=== PATIENT | female | born 1975 | race Caucasian/White ===

== ENCOUNTER 2019-12-30 01:41 | Emergency (ER) | payer OTHER, SELFPAY ==
--- NOTE | ~2019-12-30 | CT_ITS ---
EXAMINATION: CT brain wo con DATE: 12/30/2019 02:05 INDICATION: Severe headache TECHNIQUE: Computed tomography (CT) of the head was performed without intravenous contrast. The mA wa s adjusted according to patient size. Iterative reconstruction technique was employed. Exam dose: 60 5.33 mGy-cm total exam DLP. COMPARISON: None FINDINGS: No intracranial mass lesion or hemorrhage or cerebrovascular accident is evident. No midlin e shift or mass effect. Normal munguia-white matter differentiation. No subdural or epidural hematoma. There is calcification of the carotid siphon internal carotid arteries. No fracture or bone destruction of the cranial vault. The included paranasal sinuses and mastoid air cells are normally developed and aerated. IMPRESSION: Cerebral atherosclerosis; no other significant abnormality Reviewed, dictated and finalized at [facility] Reviewed, dictated and finalized at [facility].
[2019-12-30 01:42] VITALS: BP 150/106; PULSE 111; RESP 16; TEMP 37.2; O2SAT 100
--- NOTE | 2019-12-30 01:47 | ED.HA ---
HPI - Headache General Chief Complaint: Headache Stated Complaint: vomiting Time Seen by Provider: 12/30/19 01:45 History of Present Illness HPI Narrative: She is a respiratory therapist here. While at work she began to develop a a headache. She tried OTC medications for the pain. It became severe. She then developed nausea and vomited several times. She reports that she has had similar headaches with increasing frequency. This has been the most severe. She has not had any work-up up to this point. Related Data Home Medications Medication Instructions Recorded Confirmed bupropion HCl [Wellbutrin XL] 300 mg PO QAM 12/30/19 Allergies Allergy/AdvReac Type Severity Reaction Status Date / Time Sulfa (Sulfonamide Allergy Unknown Verified 12/30/19 01:47 Antibiotics) Review of Systems Review of Systems: All systems reviewed & are unremarkable except as noted in HPI and below Constitutional: Constitutional: Denies fever(s) Eyes: Eyes: Denies change in vision Cardiovascular: Cardiovascular: Denies chest pain Respiratory: Respiratory: Denies dyspnea Gastrointestinal: Gastrointestinal: Denies abdominal pain, Reports nausea and Reports vomiting Neurologic: Reports headache(s) and Denies weakness [facility] Past Medical History Medical History (Updated 12/30/19 @ 02:30 by Luke Argueta MD) Depression Headache Social History Social History (Updated 12/30/19 @ 02:28 by Luke Argueta MD) Smoking status: Never smoker Gender identity (if verbalized by the patient): Female Exam Const: General: alert and ill appearing Nutritional Appearance: obese Orientation/consciousness: patient oriented x3 HENMT: Head: normal to inspection Eyes: Pupils: Equal, round and reactive pupils present Resp: Effort & Inspection: normal respiratory effort Auscultation: clear to auscultation bilaterally Cardio: Rate: regular rate Rhythm: regular rhythm GI: GI Palp: Yes Soft to palpation and No Tenderness to palpation present (GI) Skin: General skin exam: pallor Neuro: General: patient oriented x3 and moves all extremities Speech: normal speech Course Vital Signs Vital signs: Vital Signs Temperature 37.2 C 12/30/19 01:42 Pulse Rate 111 H 12/30/19 01:42 Respiratory Rate 16 12/30/19 01:42 Blood Pressure 150/106 H 12/30/19 01:42 Pulse Oximetry 100 12/30/19 01:42 Temperature 37.2 C 12/30/19 01:42 Pulse Rate 81 12/30/19 03:49 Respiratory Rate 18 12/30/19 03:49 Blood Pressure 124/77 12/30/19 03:49 Pulse Oximetry 99 12/30/19 03:49 MDM - Headache MDM Narrative Medical decision making narrative: CT negative. Symptoms resolved with treatment. Differential Diagnosis Differential diagnosis: Likely migraine, subarachnoid hemorrhage and other (Brain mass) Medical Records Attestation: I reviewed the patient's medical records. Lab Data Attestation: I reviewed the patient's lab results. Result diagrams: 12/30/19 01:52 12/30/19 01:52 Labs: Lab Results 12/30/19 12/30/19 Range/Units 01:52 01:52 WBC 12.5 H (4.5-10.0) K/mm3 RBC 4.20 (4.2-5.4) M/mm3 Hgb 12.4 (12.0-15.0) g/dL Hct 38.4 (37.0-47.0) % MCV 91.4 (80-100) fl MCH 29.5 (26-34) pg MCHC 32.3 (32-36) g/dl RDW 14.3 (11.5-14.5) % Plt Count 297 (150-375) k/mm3 MPV 9.8 (7.4-10.4) fl Immature Gran % (Auto) 0.5 (0-0.5) % Neut % (Auto) 64.3 (45.5-73.1) % Lymph % (Auto) 23.6 (18.3-44.2) % [place] % (Auto) 8.9 H (2.6-8.5) % Eos % (Auto) 2.1 (0-4.4) % Baso % (Auto) 0.6 (0.2-1.2) % Lymph # (Auto) 2.95 (0.9-3.2) K/mm3 [place] # (Auto) 1.1 H (0.1-0.6) K/mm3 Eos # (Auto) 0.3 (0-0.3) K/mm3 Baso # (Auto) 0.1 (0.0-0.1) K/mm3 Abs Immat Gran (auto) 0.06 H (0.00-0.031) K/mm3 Absolute Neuts (auto) 8.0 H (1.3-6.7) K/mm3 Absolute Nucleated RBC 0.0 (0.0-0.012) K/mm3 Nucleated RBC % 0.0 (0.0-0.2) % Sodium 136 L (
[2019-12-30] MEDS: METOCLOPRAMIDE HCL INJ 10 MG/2 ML VIAL IV PUSH (01:51)
[2019-12-30] MEDS: diphenhydrAMINE HCl INJ 50 MG/ML VIAL 25 MG IV PUSH (01:51)
[2019-12-30] MEDS: SODIUM CHLORIDE 0.9% IV 1,000 ML 999 ML IV CONT (01:51)
[2019-12-30 02:01] LABS: Basophils Absolute Auto 0.1 K/mm3 (0.0-0.1); Basophils Percent Auto 0.6 % (0.2-1.2); Eosinophils Absolute Auto 0.3 K/mm3 (0-0.3); Eosinophils Percent Auto 2.1 % (0-4.4); Hematocrit 38.4 % (37.0-47.0); Hemoglobin 12.4 g/dL (12.0-15.0); Immature Granulocyte Absolute 0.06 K/mm3 (0.00-0.031); Immature Granulocyte Percent A 0.5 % (0-0.5); Lymphocytes Absolute Auto 2.95 K/mm3 (0.9-3.2); Lymphocytes Percent Auto 23.6 % (18.3-44.2); Mean Corpuscular HGB Conc 32.3 g/dl (32-36); Mean Corpuscular Hemoglobin 29.5 pg (26-34); Mean Corpuscular Volume 91.4 fl (80-100); Mean Platelet Volume 9.8 fl (7.4-10.4); Monocytes Absolute Auto 1.1 K/mm3 (0.1-0.6); Monocytes Percent Auto 8.9 % (2.6-8.5); Neutrophils Percent Auto 64.3 % (45.5-73.1); Platelet Count Result 297 k/mm3 (150-375); Red Cell Distribution Width 14.3 % (11.5-14.5); White Blood Count 12.5 K/mm3 (4.5-10.0)
[2019-12-30 02:11] LABS: Alanine Aminotransferase 19 U/L (4-35); Albumin Level 4.5 g/dL (3.5-5.1); Alkaline Phosphatase 93 U/L (38-126); Anion Gap 9 mmol/L (8-16); Aspartate Amino Transferase 21 U/L (14-36); Bilirubin,Total 0.4 mg/dL (0.2-1.3); Blood Urea Nitrogen 15 mg/dL (7-17); Calcium 9.3 mg/dL (8.4-10.2); Carbon Dioxide 26 mmol/L (22-30); Chloride 101 mmol/L (98-107); Estimated Glomerular Filt Rate > 60; Glucose 107 mg/dL (65-105); Potassium 3.7 mmol/L (3.4-5.0); Sodium 136 mmol/L (137-145)
[2019-12-30 03:49] VITALS: BP 124/77; PULSE 81; RESP 18; O2SAT 99
== END 2019-12-30 03:52 | disposition home or self-care (01) ==
LOC: ANHED 02:58
PROVIDERS: Emergency Provider Emergency Medicine; PCP Internal Medicine
DX: G43.909 Migraine, unspecified, not intractable, without status migrainosus (principal); F32.9 Major depressive disorder, single episode, unspecified
CPT/HCPCS: 36415; 70450; 80053; 85025; 96361; 96374; 96375; 99284; J1200; J2765; J7030

== ENCOUNTER 2020-01-07 11:25 | Outpatient (CLI) | payer OTHER, SELFPAY ==
[2020-01-07 12:10] LABS: Basophils Absolute Auto 0.1 K/mm3 (0.0-0.1); Basophils Percent Auto 0.9 % (0.2-1.2); Eosinophils Absolute Auto 0.2 K/mm3 (0-0.3); Eosinophils Percent Auto 3.1 % (0-4.4); Hematocrit 37.6 % (37.0-47.0); Hemoglobin 12.3 g/dL (12.0-15.0); Immature Granulocyte Absolute 0.02 K/mm3 (0.00-0.031); Immature Granulocyte Percent A 0.3 % (0-0.5); Lymphocytes Absolute Auto 1.91 K/mm3 (0.9-3.2); Lymphocytes Percent Auto 25.5 % (18.3-44.2); Mean Corpuscular HGB Conc 32.7 g/dl (32-36); Mean Corpuscular Hemoglobin 29.6 pg (26-34); Mean Corpuscular Volume 90.6 fl (80-100); Mean Platelet Volume 9.7 fl (7.4-10.4); Monocytes Absolute Auto 0.7 K/mm3 (0.1-0.6); Monocytes Percent Auto 9.2 % (2.6-8.5); Neutrophils Absolute Auto 4.6 K/mm3 (1.3-6.7); Platelet Count Result 264 k/mm3 (150-375); Red Blood Count 4.15 M/mm3 (4.2-5.4); Red Cell Distribution Width 14.4 % (11.5-14.5); White Blood Count 7.5 K/mm3 (4.5-10.0)
[2020-01-07 12:28] LABS: Alanine Aminotransferase 22 U/L (4-35); Albumin Level 4.3 g/dL (3.5-5.1); Alkaline Phosphatase 92 U/L (38-126); Anion Gap 7 mmol/L (8-16); Aspartate Amino Transferase 25 U/L (14-36); Bilirubin,Total 0.5 mg/dL (0.2-1.3); Blood Urea Nitrogen 17 mg/dL (7-17); Carbon Dioxide 25 mmol/L (22-30); Chloride 106 mmol/L (98-107); Cholesterol 196 mg/dL (0-200); Estimated Glomerular Filt Rate > 60; Glucose 104 mg/dL (65-105); HDL Direct 40 mg/dL; Potassium 4.1 mmol/L (3.4-5.0); Sodium 138 mmol/L (137-145); Triglycerides 114 mg/dL (<150)
[2020-01-07 12:34] LABS: Hemoglobin A1C 5.7 % (<5.7)
[2020-01-07 12:39] LABS: LDL Cholesterol Direct 125 mg/dL
[2020-01-07 12:58] LABS: Thyroid Stimulating Hormone 0.926 uIU/mL (0.465-4.680); Vitamin D 25 Hydroxy 34.2 ng/mL
== END 2020-01-07 11:26 | disposition home or self-care (01) ==
PROVIDERS: PCP Internal Medicine; Visit Provider Internal Medicine
DX: D50.8 Other iron deficiency anemias (principal); E78.49 Other hyperlipidemia; E55.9 Vitamin D deficiency, unspecified; R73.03 Prediabetes
CPT/HCPCS: 36415; 80053; 80061; 82306; 82607; 82728; 83036; 84443; 85025

== ENCOUNTER 2020-02-24 08:34 | Emergency (ER) | payer OTHER, SELFPAY ==
[2020-02-24 09:00] VITALS: BP 162/90; PULSE 110; RESP 16; TEMP 36.4; O2SAT 100
[2020-02-24] MEDS: IBUPROFEN 600 MG TABLET PO (09:54)
--- NOTE | 2020-02-24 10:33 | ED.GENADULT ---
HPI - General Adult General Chief complaint: Wound/Laceration <Boogie Rocha PA-C - Last Filed: 02/24/20 10:38> Stated complaint: SWOLLEN GLAND UNDER LEFT ARM <Boogie Rocha PA-C - Last Filed: 02/24/20 10:38> Time Seen by Provider: 02/24/20 09:04 <Boogie Rocha PA-C - Last Filed: 02/24/20 10:38> Source: patient <Boogie Rocha PA-C - Last Filed: 02/24/20 10:38> Mode of arrival: ambulatory <Boogie Rocha PA-C - Last Filed: 02/24/20 10:38> Limitations: no limitations <Boogie Rocha PA-C - Last Filed: 02/24/20 10:38> History of Present Illness HPI narrative: Patient is a 44-year-old female who presents with several days duration of red tender swollen lesion left arm. Patient denies similar occurrence was started on doxycycline yesterday by primary care presents to emergency department in no distress <Boogie Rocha PA-C - Last Filed: 02/24/20 10:38> Related Data Home medications: Home Medications Medication Instructions Recorded Confirmed bupropion HCl [Wellbutrin XL] 300 mg PO QAM 12/30/19 <Boogie Rocha PA-C - Last Filed: 02/24/20 10:38> Allergies/adverse reactions: Allergies Allergy/AdvReac Type Severity Reaction Status Date / Time Sulfa (Sulfonamide Allergy Unknown Verified 12/30/19 01:47 Antibiotics) <Boogie Rocha PA-C - Last Filed: 02/24/20 10:38> Review of Systems Review of Systems: All systems reviewed & are unremarkable except as noted in HPI and below <Boogie Rocha PA-C - Last Filed: 02/24/20 10:38> [facility] Past Medical History Medical History: Medical History Depression Headache <Boogie Rocha PA-C - Last Filed: 02/24/20 10:38> Social History Social History: Social History Smoking status: Never smoker Gender identity (if verbalized by the patient): Female <Boogie Rocha PA-C - Last Filed: 02/24/20 10:38> Exam Narrative: Exam Narrative: GENERAL: Well-appearing, well-nourished, and in no acute distress. HEAD: Normocephalic, atraumatic. EYES: PERRLA and EOMI. ENT: Nares clear, no rhinorrhea or epistaxis. Mucous membranes moist. EXTREMITIES: Normal range of motion. No edema. SKIN: Warm, dry, no rash. 2-1/2 cm in diameter abscess of the left arm. No surrounding erythema or drainage NEURO: No focal deficits. Alert and oriented x3. Neurovascularly intact PSYCH: Normal mood and affect. <PATTIE Galvan Last Filed: 02/24/20 10:38> Course Course Emergency Course: Patient in the room in no distress aware of case findings treatment plan and diagnosis agreeing to follow-up as directed <Boogie Rocha PA-C - Last Filed: 02/24/20 10:38> Vital Signs Vital signs: Vital Signs Temperature 36.4 C 02/24/20 09:00 Pulse Rate 110 H 02/24/20 09:00 Respiratory Rate 16 02/24/20 09:00 Blood Pressure 162/90 H 02/24/20 09:00 Pulse Oximetry 100 02/24/20 09:00 Temperature 36.4 C 02/24/20 09:00 Pulse Rate 93 02/24/20 10:50 Respiratory Rate 16 02/24/20 10:50 Blood Pressure 145/95 H 02/24/20 10:50 Pulse Oximetry 100 02/24/20 10:50 <PATTIE Galvan Last Filed: 02/24/20 10:38> Vital Signs Temperature 36.4 C 02/24/20 09:00 Pulse Rate 110 H 02/24/20 09:00 Respiratory Rate 16 02/24/20 09:00 Blood Pressure 162/90 H 02/24/20 09:00 Pulse Oximetry 100 02/24/20 09:00 Temperature 36.4 C 02/24/20 09:00 Pulse Rate 93 02/24/20 10:50 Respiratory Rate 16 02/24/20 10:50 Blood Pressure 145/95 H 02/24/20 10:50 Pulse Oximetry 100 02/24/20 10:50 <Yolanda Lepe MD - Last Filed: 02/24/20 12:40> Procedures Abscess I/D upper extremity: Date of Incision: 02/24/20 <Boogie Rocha PA-C - Last Filed: 02/24/20 10:38> Time of Incision: 10:35 <Boogie Hollingsworth
[2020-02-24 10:50] VITALS: BP 145/95; PULSE 93; RESP 16; O2SAT 100
== END 2020-02-24 10:50 | disposition home or self-care (01) ==
PROVIDERS: Emergency Provider Emergency Medicine; PCP Internal Medicine
DX: L02.414 Cutaneous abscess of left upper limb (principal); F32.9 Major depressive disorder, single episode, unspecified
CPT/HCPCS: 10061; 99283; A9270

== ENCOUNTER 2020-05-18 11:29 | Outpatient (CLI) | payer OTHER, SELFPAY ==
[2020-05-18 12:07] LABS: Basophils Percent Auto 0.5 % (0.2-1.2); Eosinophils Absolute Auto 0.3 K/mm3 (0-0.3); Hematocrit 37.5 % (37.0-47.0); Hemoglobin 11.9 g/dL (12.0-15.0); Immature Granulocyte Absolute 0.03 K/mm3 (0.00-0.031); Immature Granulocyte Percent A 0.4 % (0-0.5); Lymphocytes Absolute Auto 1.99 K/mm3 (0.9-3.2); Lymphocytes Percent Auto 23.3 % (18.3-44.2); Mean Corpuscular HGB Conc 31.7 g/dl (32-36); Mean Corpuscular Hemoglobin 29.5 pg (26-34); Mean Corpuscular Volume 93.1 fl (80-100); Mean Platelet Volume 9.2 fl (7.4-10.4); Monocytes Percent Auto 11.3 % (2.6-8.5); Neutrophils Absolute Auto 5.3 K/mm3 (1.3-6.7); Neutrophils Percent Auto 61.5 % (45.5-73.1); Platelet Count Result 277 k/mm3 (150-375); Red Blood Count 4.03 M/mm3 (4.2-5.4); Red Cell Distribution Width 13.7 % (11.5-14.5); White Blood Count 8.6 K/mm3 (4.5-10.0)
[2020-05-18 12:18] LABS: Alanine Aminotransferase 20 U/L (4-35); Albumin Level 4.2 g/dL (3.5-5.1); Alkaline Phosphatase 101 U/L (38-126); Anion Gap 6 mmol/L (8-16); Aspartate Amino Transferase 23 U/L (14-36); Bilirubin,Total 0.6 mg/dL (0.2-1.3); Blood Urea Nitrogen 16 mg/dL (7-17); Calcium 9.1 mg/dL (8.4-10.2); Carbon Dioxide 27 mmol/L (22-30); Chloride 104 mmol/L (98-107); Cholesterol 180 mg/dL (0-200); Estimated Glomerular Filt Rate 60; Glucose 98 mg/dL (65-105); HDL Direct 41 mg/dL; Potassium 3.9 mmol/L (3.4-5.0); Sodium 137 mmol/L (137-145); Triglycerides 108 mg/dL (<150)
[2020-05-18 12:29] LABS: LDL Cholesterol Direct 117 mg/dL
[2020-05-18 12:37] LABS: Hemoglobin A1C 5.5 % (<5.7)
[2020-05-18 13:07] LABS: Vitamin D 25 Hydroxy 39.2 ng/mL
== END 2020-05-18 11:30 | disposition home or self-care (01) ==
LOC: ANHLAB 11:33
PROVIDERS: PCP Internal Medicine; Visit Provider Internal Medicine
DX: G47.39 Other sleep apnea (principal); R73.03 Prediabetes; E78.49 Other hyperlipidemia; Z87.09 Personal history of other diseases of the respiratory system; D50.8 Other iron deficiency anemias; K21.9 Gastro-esophageal reflux disease without esophagitis; E53.8 Deficiency of other specified B group vitamins
CPT/HCPCS: 36415; 80053; 80061; 82306; 82607; 82728; 83036; 84443; 85025; 86769

== ENCOUNTER 2021-03-10 08:06 | Outpatient (CLI) | payer OTHER, SELFPAY ==
[2021-03-10 09:00] LABS: Basophils Absolute Auto 0.1 K/mm3 (0.0-0.1); Basophils Percent Auto 0.6 % (0.2-1.2); Eosinophils Absolute Auto 0.2 K/mm3 (0-0.3); Eosinophils Percent Auto 2.7 % (0-4.4); Hematocrit 38.8 % (37.0-47.0); Hemoglobin 12.6 g/dL (12.0-15.0); Immature Granulocyte Absolute 0.03 K/mm3 (0.00-0.031); Immature Granulocyte Percent A 0.3 % (0-0.5); Lymphocytes Absolute Auto 2.41 K/mm3 (0.9-3.2); Lymphocytes Percent Auto 27.8 % (18.3-44.2); Mean Corpuscular HGB Conc 32.5 g/dl (32-36); Mean Corpuscular Hemoglobin 30.7 pg (26-34); Mean Corpuscular Volume 94.6 fl (80-100); Mean Platelet Volume 9.7 fl (7.4-10.4); Monocytes Absolute Auto 0.8 K/mm3 (0.1-0.6); Monocytes Percent Auto 9.7 % (2.6-8.5); Neutrophils Absolute Auto 5.1 K/mm3 (1.3-6.7); Neutrophils Percent Auto 58.9 % (45.5-73.1); Platelet Count Result 262 k/mm3 (150-375); Red Cell Distribution Width 13.2 % (11.5-14.5); White Blood Count 8.7 K/mm3 (4.5-10.0)
[2021-03-10 09:11] LABS: Alanine Aminotransferase 19 U/L (4-35); Albumin Level 4.4 g/dL (3.5-5.1); Alkaline Phosphatase 85 U/L (38-126); Anion Gap 8 mmol/L (8-16); Aspartate Amino Transferase 23 U/L (14-36); Bilirubin,Total 0.6 mg/dL (0.2-1.3); Blood Urea Nitrogen 17 mg/dL (7-17); Calcium 8.9 mg/dL (8.4-10.2); Carbon Dioxide 22 mmol/L (22-30); Chloride 108 mmol/L (98-107); Cholesterol 190 mg/dL (0-200); Estimated Glomerular Filt Rate > 60; Glucose 109 mg/dL (65-110); HDL Direct 38 mg/dL; Potassium 4.2 mmol/L (3.4-5.0); Sodium 138 mmol/L (137-145); Triglycerides 78 mg/dL (<150)
[2021-03-10 09:23] LABS: LDL Cholesterol Direct 123 mg/dL
[2021-03-10 09:39] LABS: Hemoglobin A1C 5.6 % (<5.7)
[2021-03-10 09:49] LABS: Vitamin D 25 Hydroxy 47.4 ng/mL
== END 2021-03-10 08:07 | disposition home or self-care (01) ==
LOC: ANHLAB 08:11
PROVIDERS: PCP Internal Medicine; Visit Provider Internal Medicine
DX: E78.49 Other hyperlipidemia (principal); G47.39 Other sleep apnea; E53.8 Deficiency of other specified B group vitamins; E55.9 Vitamin D deficiency, unspecified
CPT/HCPCS: 36415; 80053; 80061; 82306; 82607; 83036; 84443; 85025